=== PATIENT | male | born 1975 ===

== ENCOUNTER 2021-07-19 12:24 | Outpatient (CLI) | payer SELFPAY ==
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
== END 2021-07-19 12:25 | disposition home or self-care (01) ==
LOC: DI.N 12:24
PROVIDERS: ATTEND Chiropractor
DX: S16.1XXA Strain of muscle, fascia and tendon at neck level, initial encounter (principal); S39.012A Strain of muscle, fascia and tendon of lower back, initial encounter; S29.012A Strain of muscle and tendon of back wall of thorax, initial encounter; M51.37 Other intervertebral disc degeneration, lumbosacral region